=== PATIENT | female | born 1985 | race Caucasian/White ===

== ENCOUNTER 2016-04-20 10:22 | Emergency (ER) | payer BC, OTHER ==
[~2016-04-20] VITALS: Ht 166.4 cm; Wt 54.4 kg
[2016-04-20 10:32] VITALS: TEMP 36.8; Ht 166.4 cm; Wt 54.4 kg
--- NOTE | 2016-04-20 11:19 | EMERGENCY ROOM VISIT NOTE ---
ED Visit Note First contact with patient: 11:00 CHIEF COMPLAINT: Stye HISTORY OF PRESENT ILLNESS: This 31-year-old female presents to the emergency department ambulatory complaining of a possible stye on her left eye. The patient states that she first noticed swelling two days ago. She does report she has had one sty in the past. She has been using drops and applying warm compresses to eye. She states that this time did begin draining today. It has been slightly improving since it started to drain. She wears contacts and states that she is afraid to take out her contacts, as she has to drive home. She rates her discomfort a 5/10. No difficulty with vision. The patient does not have a foreign body sensation. No headache, rash, nausea or vomiting. REVIEW OF SYSTEMS: A 6 system review of systems was completed with positives and pertinent negatives in the HPI. ALLERGIES: Penicillins MEDICATIONS: No chronic medications PMH: Anxiety, hypertension SOCIAL HISTORY: The patient lives with her parents. She is a smoker but denies alcohol use. PHYSICAL EXAM: Vital Signs: Reviewed Nurse's notes, vital signs stable. GENERAL : This is a 31-year-old female, anxious appearing and jittery, well-developed, well-nourished. SKIN: Warm, dry. No cyanosis. No petechia. EYES: There is swelling of the left upper eyelid consistent with external hordeolum. Both pupils are equal round and reactive to light and accommodation, EOMs intact. There is whitish discharge in the left eye and moderate injection. There is no foreign body of the eyelid with lid eversion. Visual Acuity is 20/20 right and 20/20 left with correction. EMERGENCY DEPARTMENT COURSE: I examined the patient. Conservative measures were discussed. The patient was given erythromycin ophthalmic ointment. She was instructed to follow-up with an hose tester in her tongue. The patient was discharged home in good condition. DIAGNOSIS: External hordeolum Current/Historical Medications No Active Prescriptions or Reported Meds Allergies Coded Allergies: Penicillins (Unverified Allergy, Intermediate, UNKNOWN, CHILDHOOD ALLERGY. , 04/20/16) Vital Signs Date Time Temp Pulse Resp B/P Pulse Ox O2 Delivery O2 Flow Rate FiO2 04/20/16 11:34 102 18 125/75 97 04/20/16 11:14 102 18 125/75 97 Room Air 04/20/16 10:32 36.8 98 18 190/54 98 Room Air Medications Administered Medications (Trade) Dose Ordered Sig/Nathalia Route Start Time Stop Time Status Last Admin Dose Admin Erythromycin (Erythromycin Oph Oint) 1 appln NOW ONCE OP 04/20/16 11:30 04/20/16 11:31 DC 04/20/16 11:20 1 APPLN Departure Information Impression Primary Impression: External hordeolum Dispostion Home / Self-Care Condition GOOD Prescriptions No Active Prescriptions or Reported Meds Referrals No Doctor, Assigned (PCP) Patient Instructions My [facility] Additional Instructions You have been prescribed Erythromycin Opthalmic ointment. This is an antibiotic ointment which will help prevent an infection from developing in your affected eye. You should apply a 1 cm ribbon of the ointment to the lower part of the affected eye up to 6 times per day for the next 10 days. Do not wear contact lenses until the stye has completely resolved. Throw away any eye cosmetics you have been using. For pain control, you can use the following dukd-qxj-zhmideo medicines (if >12 yo): - Regular strength (325mg/tab) Tylenol (acetaminophen) 2 tabs every 4-6 hours as needed. Do not exceed 12 tablets in a 24 hour period. Avoid taking more than 4 grams (4000 mg) of Tylenol per day. This includes any other sources of acetaminophen you may take on a regular basis. - Regular strength (200 mg/tab) Advil (ibuprofen) 1-2 tabs every 4-6 hours as needed. Do not exceed a dose of 3200 mg per day. You should use warm compresses over the affected eye several times daily until the stye resolves. If there is increased swelling or if symptoms are not improving in 2-3 days, you should make an appointment with your precision lens grinder/hose tester. Return to the closest emergency department if you have difficulty with vision, fevers, difficulty moving the eye or increased swelling. Problem Qualifiers Primary Impression: External hordeolum Laterality: left Eyelid: upper Qualified Codes: H00.014 - Hordeolum externum left upper eyelid
[2016-04-20] MEDS ORDERED: ERYTHROMYCIN OP OINT 5 MG/GM 3.5 GM TUBE OP ONE (11:30)
[2016-04-20 11:34] VITALS: BP 125/75; PULSE 102; O2SAT 97
== END 2016-04-20 11:34 | disposition home or self-care (01) ==
LOC: C.EDB 10:25
DX: H00.014 Hordeolum externum left upper eyelid (principal); F41.9 Anxiety disorder, unspecified; I10 Essential (primary) hypertension

== ENCOUNTER 2016-10-16 21:30 | Emergency (ER) | payer SELFPAY ==
[~2016-10-16] VITALS: Ht 165.1 cm; Wt 52.0 kg
[2016-10-16 21:38] VITALS: Ht 165.1 cm; Wt 52.0 kg
[2016-10-16] MEDS ORDERED: ASPI-390 PO (22:29)
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
[2016-10-16] MEDS ORDERED: OPTIRAY 320 IV PRN (23:15)
[2016-10-16 23:44] LABS: BASO % 0.2 %; BASO ABS # 0.02 K/uL (0-0.2); COMPLETE YES; EOS % 3.3 %; HEMATOCRIT 43.2 % (37-47); IG% 0.3 %; LYMPH % 24.7 %; MEAN CELL VOLUME 87.4 fL (80-100); MEAN CORPUSCULAR HEMOGLOBIN 27.7 pg (25-34); MEAN CORPUSCULAR HGB CONC 31.7 g/dl (32-36); MEAN PLATELET VOLUME 8.7 fL (7.4-10.4); MONO % 4.7 %; NEUT % 66.8 %; PLATELET COUNT 344 K/uL (130-400); RED BLOOD COUNT 4.94 M/uL (4.2-5.4); WHITE BLOOD COUNT 10.95 K/uL (4.8-10.8)
[2016-10-17] MEDS ORDERED: KETOROLAC TROMETHAMINE 30 MG/ML VIAL IV STA (00:03)
[2016-10-17 00:10] LABS: BUN/CREATININE RATIO 18.2 (10-20); CALCIUM 8.8 mg/dl (8.5-10.1); CREATININE 0.67 mg/dl (0.60-1.20); POTASSIUM 3.3 mmol/L (3.5-5.1)
[2016-10-17] MEDS ORDERED: POTASSIUM CHLORIDE 10 MEQ TABCR PO STA (00:14)
[2016-10-17] MEDS ORDERED: SODIUM CHLORIDE 0.9% 1000ML 1,000 ML IV STA (00:14)
[2016-10-17 00:17] LABS: PREG INTERNAL NEGATIVE QC NEG CLEAR BACKGROUND; PREG INTERNAL POSITIVE QC POS CONTROL LINE
[2016-10-17 01:47] LABS: C-REACTIVE PROTEIN 1.52 mg/dl (0-0.29)
[2016-10-17] MEDS ORDERED: CEFAZOLIN SOD 1000MG/55 ML D5W IV STA (03:43)
[2016-10-17] MEDS ORDERED: SEPTRA DS HOME PACK 1 EA VIAL PO ONE (03:45)
[2016-10-17] MEDS ORDERED: CEPHALEXIN 500MG HOME PACK 1 EA BTL PO ONE (03:45)
[2016-10-17] MEDS ORDERED: SULF800T23 PO (03:53)
[2016-10-17] MEDS ORDERED: CEPH500C2 PO (03:53)
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
[2016-10-17 04:45] VITALS: BP 94/59; PULSE 91; TEMP 37; O2SAT 98
--- NOTE | 2016-10-17 07:39 | DIAGNOSTIC IMAGING REPORT ---
LEFT LOWER LEG CT CT DOSE: 293.44 mGy.cm HISTORY: left lower leg pain, ? OM/fx TECHNIQUE: Multiaxial CT images of the left lower leg were performed and reformatted in the sagittal and coronal plane without the use of contrast. A dose lowering technique was utilized adhering to the principles of ALARA. COMPARISON: Left tibia/fibula 10/16/2016. FINDINGS: Old mid tibial fracture with incomplete osseous bridging and postoperative changes of bone grafting. There is heterogeneous appearance at the fracture site with nonunion and presumed areas of resorption. There are proximal and distal screws/pins within the tibia due to old, healed fractures. Linear areas of scar tissue seen within the mid to distal lower leg. No loculated fluid collection within the lower leg to suggest an abscess. Multiple surgical clips adjacent to the mid tibial fracture. IMPRESSION: 1. Old mid tibial fracture with incomplete osseous bridging and postoperative changes of bone grafting. There is heterogeneous appearance at the fracture site with nonunion and presumed areas of resorption. Underlying osteomyelitis cannot be excluded. 2. No loculated fluid collections within the lower leg to suggest an abscess. Electronically signed by: Jaden Crowe M.D. 10/17/2016 7:37 AM Dictated Date/Time: 10/17/2016 7:26 AM
== END 2016-10-17 04:45 | disposition home or self-care (01) ==
LOC: C.EDB 21:32 → C.EDA 10-17 04:45
DX: M86.9 Osteomyelitis, unspecified (principal); F17.200 Nicotine dependence, unspecified, uncomplicated